=== PATIENT | male | born 1970 | race African-American/Black ===

== ENCOUNTER 2018-10-04 14:58 | Inpatient (IN) | payer OTHER ==
[2018-10-04 17:04] VITALS: BMI 26.2
--- NOTE | 2018-10-04 18:45 | HP ---
CIWA Score Nausea/Vomitin-No Nausea/No Vomiting Muscle Tremors: None Anxiety: 0-No Anxiety, at Ease Agitation: 0-Normal Activity Paroxysmal Sweats: No Perspiration Orientation: 3-Disoriented Date>2 days Tacttile Disturbances: 0-None Auditory Disturbances: 0-None Visual Disturbances: 0-None Headache: 0-None Present CIWA-Ar Total Score: 3 - Admission Criteria OASAS Guidelines: Admission for Medically Managed Detox: Requires at least one of the followin. CIWA greater than 12 2. Seizures within the past 24 hours 3. Delirium tremens within the past 24 hours 4. Hallucinations within the past 24 hours 5. Acute intervention needed for co occurring medical disorder 6. Acute intervention needed for co occurring psychiatric disorder 7. Severe withdrawal that cannot be handled at a lower level of care (continued vomiting, continued diarrhea, abnormal vital signs) requiring intravenous medication and/or fluids 8. Admission ROS [facility] - [facility] Allergies/Adverse Reactions: Allergies Allergy/AdvReac Type Severity Reaction Status Date / Time No Known Allergies Allergy Verified 10/04/18 17:43 - Ebola screening Have you traveled outside of the country in the last 21 days: No Have you had contact with anyone from an Ebola affected area: No Have you been sick,other than usual withdrawal symptoms: No Patient History - Patient Medical History Hx Anemia: No Hx Asthma: No Hx Chronic Obstructive Pulmonary Disease (COPD): No Hx Cancer: No Hx Cardiac Disorders: No Hx Hypertension: No Hx Hypercholesterolemia: No Hx Pacemaker: No HX Cerebrovascular Accident: No Hx Seizures: No Hx Dementia: No Hx Diabetes: No Hx Gastrointestinal Disorders: No Hx Genitourinary Disorders: No Hx Sexually Transmitted Disorders: No Hx Renal Disease (ESRD): No Hx Thyroid Disease: No Hx Human Immunodeficiency Virus (HIV): No (last 04/12 last negative) Hx Hepatitis C: No Hx Depression: Yes Hx Suicide Attempt: No Hx Bipolar Disorder: Yes (no med) Hx Schizophrenia: No - Patient Surgical History Past Surgical History: No Hx Neurologic Surgery: No Hx Cataract Extraction: No Hx Cardiac Surgery: No Hx Lung Surgery: No Hx Breast Surgery: No Hx Breast Biopsy: No Hx Abdominal Surgery: No Hx Appendectomy: No Hx Cholecystectomy: No Hx Genitourinary Surgery: No Hx Section: No Hx Orthopedic Surgery: No Anesthesia Reaction: No - PPD History Previous Implant?: Yes Documented Results: Negative w/o proof Implanted On Prior [facility] Admission?: No Date: 06/09/16 - Smoking Cessation Smoking history: Current every day smoker Have you smoked in the past 12 months: Yes Aproximately how many cigarettes per day: 20 Hx Chewing Tobacco Use: No Initiated information on smoking cessation: Yes - Substances Abused Alcohol Route: Oral Frequency: Daily Amount used: 1 pint vodka Age of first use: 14 Date of Last Use: 10/04/18 Crack Route: Smoking Frequency: Daily Amount used: $50 Age of first use: 17 Date of Last Use: 10/04/18 PCP Route: Smoking Frequency: Daily Amount used: 1 bag Age of first use: 17 Date of Last Use: 09/27/18 Admission Physical Exam [facility] - Vital Signs Vital Signs: Vital Signs - 24 hr 10/04/18 17:03 Temperature 97.7 F Pulse Rate 60 Respiratory 18 Rate Blood Pressure 125/68 BHS Breath Alcohol Content Breath Alcohol Content: 0 Urine Drug Screen - Results Drug Screen Negative: No Urine Drug Screen Results: MIKIE-Cocaine
--- NOTE | 2018-10-04 20:46 | HP ---
"CIWA Score Nausea/Vomitin-Mild Nausea/No Vomiting Muscle Tremors: 4-Moderate,w/Arms Extend Anxiety: 3 Agitation: 3 Paroxysmal Sweats: 3 (Mild facial misture w/o beads) Orientation: 1-Uncertain about Date Tacttile Disturbances: 1-Very Mild Itch/Numbness Auditory Disturbances: 0-None Visual Disturbances: 0-None Headache: 0-None Present CIWA-Ar Total Score: 16 - Admission Criteria OASAS Guidelines: Admission for Medically Managed Detox: Requires at least one of the followin. CIWA greater than 12 2. Seizures within the past 24 hours 3. Delirium tremens within the past 24 hours 4. Hallucinations within the past 24 hours 5. Acute intervention needed for co occurring medical disorder 6. Acute intervention needed for co occurring psychiatric disorder 7. Severe withdrawal that cannot be handled at a lower level of care (continued vomiting, continued diarrhea, abnormal vital signs) requiring intravenous medication and/or fluids 8. Patient presents the following: CIWA greater than 12 Admission Criteria Met: Admission criteria met Admission ROS [facility] - [facility] Chief Complaint: Here for alcohol withdrawal. Allergies/Adverse Reactions: Allergies Allergy/AdvReac Type Severity Reaction Status Date / Time No Known Allergies Allergy Verified 10/04/18 17:43 History of Present Illness: Here for detox. Alcohol use began at age 14. Cocaine use began at age 17. PCP use began at age 17. Nicotine use began at age 14. Declines nicotine patch. Denies general pain. C/o burning w/ urination. Hx: Migraine headaches. No headache at this time. Denies significant PMH/PSH. Hx mental health issues.Denies thoughts of harming self or others. No recent visits to a mental health provider. Search Terms: Jefferson Guzman, 12/12/1976 Search Date: 10/04/2018 08:25:02 PM The Drug Utilization Report below displays all of the controlled substance prescriptions, if any, that your patient has filled in the last twelve months. The information displayed on this report is compiled from pharmacy submissions to the Department, and accurately reflects the information as submitted by the pharmacies. This report was requested by: Melyssa Breaux | Reference #: [id number] There are no results for the search terms that you entered. Exam Limitations: No Limitations - Ebola screening Have you traveled outside of the country in the last 21 days: No Have you had contact with anyone from an Ebola affected area: No Have you been sick,other than usual withdrawal symptoms: No Do you have a fever: No - Review of Systems Constitutional: Chills, Diaphoresis, Changes in sleep (Difficulty staying asleep.) EENT: reports: Blurred Vision, Other (Microscopic hole in (L) pupil since r/t injury) Respiratory: reports: No Symptoms reported Cardiac: reports: Other (Occ slow heart. Denies fainting) GI: reports: Vomiting : reports: Other (Occ burning w/ urination. Hegterosexual. Sexually active.) Musculoskeletal: reports: No Symptoms Reported Integumentary: reports: No Symptoms Reported Neuro: reports: Numbness (C/o numbness in fingers when doesn't drink), Tremors Endocrine: reports: No Symptoms Reported Hematology: reports: No Symptoms Reported Psychiatric: reports: Judgement Intact, Agitated, Anxious, Depressed (Denies thoughts of harming self or others. No recent visits to a mental health provider.) Patient History - Patient Medical History Hx Anemia: No Hx Asthma: No Hx Chronic Obstructive Pulmonary Disease (COPD): No Hx Cancer: No Hx Cardiac Disorders: No Hx Hypertension: No Hx Hypercholesterolemia: No Hx Pacemaker: No HX Cerebrovascular Accident: No Hx Seizures: No Hx Dementia: No Hx Diabetes: No Hx Gastrointestinal Disorders: No Hx Genitourinary Disorders: No Hx Sexually Transmitted Disorders: No Hx Renal Disease (ESRD): No Hx Thyroid Disease: No Hx Human Immunodeficiency Virus (HIV): No (last 04/12 last negative) Hx Hepatitis C: No Hx Depression: Yes Hx Suicide Attempt: No Hx Bipolar Disorder: Yes (no med) Hx Schizophrenia: No - Patient Surgical History Past Surgical History: No Hx Neurologic Surgery: No Hx Cataract Extraction: No Hx Cardiac Surgery: No Hx Lung Surgery: No Hx Breast Surgery: No Hx Breast Biopsy: No Hx Abdominal Surgery: No Hx Appendectomy: No Hx Cholecystectomy: No Hx Genitourinary Surgery: No Hx Section: No Hx Orthopedic Surgery: No Anesthesia Reaction: No - PPD History Previous Implant?: Yes Documented Results: Negative w/o proof Implanted On Prior [facility] Admission?: No Date: 06/09/16 PPD to be Administered?: Yes - Smoking Cessation Smoking history: Current every day smoker Have you smoked in the past 12 months: Yes Aproximately how many cigarettes per day: 20 Hx Chewing Tobacco Use: No Initiated information on smoking cessation: Yes 'Breaking Loose' booklet given: 10/04/18 - Substances Abused Alcohol Route: Oral Frequency: Daily Amount used: 1 pint vodka Age of first use: 14 Date of Last Use: 10/04/18 Crack Route: Smoking Frequency: Daily Amount used: $50 Age of first use: 17 Date of Last Use: 10/04/18 PCP Route: Smoking Frequency: Daily Amount used: 1 bag Age of first use: 17 Date of Last Use: 09/27/18 Admission Physical Exam [facility] - Vital Signs Vital Signs: Vital Signs - 24 hr 10/04/18 17:03 Temperature 97.7 F Pulse Rate 60 Respiratory 18 Rate Blood Pressure 125/68 - Physical General Appearance: Yes: Nourished, Mild Distress, Tremorous, Sweating, Anxious HEENTM: Yes: EOMI, Nasal Congestion, Other ((L) pupil irregular) Respiratory: Yes: Lungs Clear, Normal Breath Sounds, No Respiratory Distress Neck: Yes: No masses,lesions,Nodules, Supple Breast: Yes: Breast Exam Deferred Cardiology: Yes: Regular Rhythm, Regular Rate, S1, S2 Abdominal: Yes: Non Tender, Soft, Increased Bowel Sounds Genitourinary: Yes: Burning Back: Yes: Normal Inspection Musculoskeletal: Yes: full range of Motion, Gait Steady Extremities: Yes: Normal Capillary Refill, Non-Tender, Tremors (w/ arms extended ) 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: Yes: Fully Oriented, Alert, Motor Strength 5/5, Normal Mood/Affect , Normal Response Integumentary: Yes: Normal Color, Dry, Warm Lymphatic: Yes: Within Normal Limits - Diagnostic (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 (2) Alcohol dependence with uncomplicated withdrawal Current Visit: Yes Status: Acute (3) Cocaine dependence Current Visit: Yes Status: Chronic Qualifiers: Substance use status: uncomplicated Qualified Code(s): F14.20 - Cocaine dependence, uncomplicated (4) Nicotine dependence Current Visit: Yes Status: Chronic Qualifiers: Nicotine product type: cigarettes Substance use status: uncomplicated Qualified Code(s): F17.210 - Nicotine dependence, cigarettes, uncomplicated (5) Burning with urination Current Visit: Yes Status: Acute Cleared for Admission [facility] - Detox or Rehab [facility] Level of Care: Medically Managed Detox Regimen/Protocol: Librium BHS Breath Alcohol Content Breath Alcohol Content: 0 Urine Drug Screen - Results Drug Screen Negative: No Urine Drug Screen Results: MIKIE-Cocaine"
[2018-10-04] MEDS ORDERED: chlordiazePOXIDE HCL 25 MG CAPSULE PO ONE (21:07)
[2018-10-04] MEDS ORDERED: MAGNESIUM CITRATE 300 ML BOTTLE PO PRN (21:07)
[2018-10-04] MEDS ORDERED: MAGNESIUM HYDROX 2400MG/30ML ORAL SUSPENSION 30 ML CUP PO PRN (21:07)
[2018-10-04] MEDS ORDERED: MENTHOL/PHENOL 1 EACH UD MM PRN (21:07)
[2018-10-04] MEDS ORDERED: chlordiazePOXIDE HCL 25 MG CAPSULE PO PRN (21:07)
[2018-10-04] MEDS ORDERED: ACETAMINOPHEN 325 MG TABLET (FP) PO PRN (21:07)
[2018-10-04] MEDS ORDERED: LOPERAMIDE HCL 2 MG CAPSULE PO PRN (21:07)
[2018-10-04] MEDS ORDERED: NICOTINE POLACRILEX 2 MG GUM BC PRN (21:07)
[2018-10-04] MEDS ORDERED: P-EPHED 60MG/TRIPROLIDI 2.5MG TABLET PO PRN (21:07)
[2018-10-04] MEDS ORDERED: MAG HYDROX/AL HYDROX/SIMETH 30 ML UNIT-DOSE CUP PO PRN (21:07)
[2018-10-04] MEDS ORDERED: IBUPROFEN 400 MG TABLET (FP) PO PRN (21:07)
[2018-10-04] MEDS ORDERED: NAPROXEN 500 MG TABLET (FP) PO PRN (21:09)
[2018-10-04] MEDS ORDERED: MELATONIN 5 MG TABLETS PO PRN (22:00)
[2018-10-04] MEDS: chlordiazePOXIDE HCL 25 MG CAPSULE PO SCH (22:27)
[2018-10-04] MEDS: THIAMINE HCL 100 MG TABLET (FP) PO SCH (22:28)
[2018-10-05] MEDS: chlordiazePOXIDE HCL 25 MG CAPSULE PO SCH ×4 (06:31→22:34)
--- NOTE | 2018-10-05 10:06 | EKG ---
Test Reason : Blood Pressure : / mmHG Vent. Rate : 059 BPM Atrial Rate : 059 BPM P-R Int : 148 ms QRS Dur : 092 ms QT Int : 396 ms P-R-T Axes : 060 083 070 degrees QTc Int : 392 ms SINUS BRADYCARDIA OTHERWISE NORMAL ECG NO PREVIOUS ECGS AVAILABLE Confirmed by Gibran Villafana MD ([id number]) on 10/05/2018 10:06:12 AM Referred By: Confirmed By:Gibran Villafana MD
[2018-10-05] MEDS: PRENATAL VITAMINS W/ FOLIC ACID TABLET (FP) PO SCH (10:19)
[2018-10-05] MEDS: NICOTINE 14 MG/24 HOURS TOPICAL PATCH TD SCH (10:19)
[2018-10-05 10:34] LABS: HEMATOCRIT 38.4 % (35.4-49); HEMOGLOBIN 12.6 GM/dL (11.7-16.9); MCH 29.5 pg (25.7-33.7); MCHC 32.8 g/dl (32.0-35.9); MEAN PLT VOLUME 9.8 fl (7.5-11.1); PLATELET COUNT 107 K/MM3 (134-434); RBC 4.27 M/mm3 (4.00-5.60); RDW 13.5 % (11.9-15.9); WHITE BLOOD COUNT 2.6 K/mm3 (4.0-10.0)
[2018-10-05 10:45] LABS: ALBUMIN 3.2 g/dl (3.4-5.0); ALK PHOS 65 U/L (45-117); ANION GAP 7 MMOL/L (8-16); BILIRUBIN,TOTAL 0.5 mg/dL (0.2-1); BLOOD UREA NITROGEN 11 mg/dL (7-18); CALCIUM 8.6 mg/dL (8.5-10.1); CHLORIDE 110 mmol/L (98-107); CO2 28 mmol/L (21-32); CREATININE 1.1 mg/dL (0.55-1.3); GLUCOSE,RANDOM 104 mg/dL (74-106); POTASSIUM 3.9 mmol/L (3.5-5.1); SGOT/AST 13 U/L (15-37); SGPT/ALT 16 U/L (13-61); SODIUM 144 mmol/L (136-145); TOT PROT 5.8 g/dl (6.4-8.2)
--- NOTE | 2018-10-05 12:13 | PN ---
S CIWA - CIWA Score Nausea/Vomitin-Mild Nausea/No Vomiting Muscle Tremors: 3 Anxiety: 2 Agitation: 2 Paroxysmal Sweats: 1-Minimal Palms Moist Orientation: 1-Uncertain about Date Tacttile Disturbances: 0-None Auditory Disturbances: 0-None Visual Disturbances: 0-None Headache: 2-Mild CIWA-Ar Total Score: 12 S Progress Note (SOAP) Subjective: patient had history of psychiatric hospitalization taking fluphenazine for schizophrenia tremor sweat restlessness trouble sleep throughout the night Objective: 10/05/18 12:32 Vital Signs Temperature 97.3 F L 10/05/18 09:20 Pulse Rate 50 L 10/05/18 09:20 Respiratory Rate 20 10/05/18 09:20 Blood Pressure 107/59 L 10/05/18 09:20 O2 Sat by Pulse Oximetry (%) Laboratory Last Values WBC 2.6 K/mm3 (4.0-10.0) L 10/05/18 07:00 RBC 4.27 M/mm3 (4.00-5.60) 10/05/18 07:00 Hgb 12.6 GM/dL (11.7-16.9) 10/05/18 07:00 Hct 38.4 % (35.4-49) 10/05/18 07:00 MCV 90.0 fl (80-96) 10/05/18 07:00 MCH 29.5 pg (25.7-33.7) 10/05/18 07:00 MCHC 32.8 g/dl (32.0-35.9) 10/05/18 07:00 RDW 13.5 % (11.9-15.9) 10/05/18 07:00 Plt Count 107 K/MM3 (134-434) L 10/05/18 07:00 MPV 9.8 fl (7.5-11.1) 10/05/18 07:00 Sodium 144 mmol/L (136-145) 10/05/18 07:00 Potassium 3.9 mmol/L (3.5-5.1) 10/05/18 07:00 Chloride 110 mmol/L (98-107) H 10/05/18 07:00 Carbon Dioxide 28 mmol/L (21-32) 10/05/18 07:00 Anion Gap 7 MMOL/L (8-16) L 10/05/18 07:00 BUN 11 mg/dL (7-18) 10/05/18 07:00 Creatinine 1.1 mg/dL (0.55-1.3) 10/05/18 07:00 Creat Clearance w eGFR > 60 (>60) 10/05/18 07:00 Random Glucose 104 mg/dL (74-106) 10/05/18 07:00 Calcium 8.6 mg/dL (8.5-10.1) 10/05/18 07:00 Total Bilirubin 0.5 mg/dL (0.2-1) 10/05/18 07:00 AST 13 U/L (15-37) L 10/05/18 07:00 ALT 16 U/L (13-61) 10/05/18 07:00 Alkaline Phosphatase 65 U/L (45-117) 10/05/18 07:00 Total Protein 5.8 g/dl (6.4-8.2) L 10/05/18 07:00 Albumin 3.2 g/dl (3.4-5.0) L 10/05/18 07:00 RPR Titer Nonreactive (NONREACTIVE) 10/05/18 07:00 lab noted repeat cbc Assessment: 10/05/18 12:33 withdrawal sx schizophrenia Plan: continue detox
[2018-10-05] MEDS: RANITIDINE HCL 150 MG TABLET (FP) PO SCH ×2 (14:16→22:34)
[2018-10-05 15:25] LABS: URINE APPEARANCE CLEAR; URINE BILIRUBIN NEGATIVE (<2.0 mg/dL); URINE COLOR LTYELLOW; URINE GLUCOSE (UA) NEGATIVE (NEGATIVE); URINE KETONE NEGATIVE (NEGATIVE); URINE LEUK ESTERASE NEGATIVE (NEGATIVE); URINE NITRITE NEGATIVE (NEGATIVE); URINE PROTEIN NEGATIVE (NEGATIVE)
[2018-10-05] MEDS: THIAMINE HCL 100 MG TABLET (FP) PO SCH (22:34)
[2018-10-06] MEDS: chlordiazePOXIDE HCL 25 MG CAPSULE PO SCH ×3 (06:39→17:10)
[2018-10-06] MEDS: RANITIDINE HCL 150 MG TABLET (FP) PO SCH ×2 (10:29→22:06)
[2018-10-06] MEDS: PRENATAL VITAMINS W/ FOLIC ACID TABLET (FP) PO SCH (10:29)
[2018-10-06] MEDS: NICOTINE 14 MG/24 HOURS TOPICAL PATCH TD SCH (10:31)
--- NOTE | 2018-10-06 14:40 | PN ---
[facility] CIWA - CIWA Score Nausea/Vomitin-No Nausea/No Vomiting Muscle Tremors: 2 Anxiety: 1-Mildly Anxious Agitation: 1-Slight > Activity Paroxysmal Sweats: 1-Minimal Palms Moist Orientation: 1-Uncertain about Date Tacttile Disturbances: 1-Very Mild Itch/Numbness Auditory Disturbances: 1-Very Mild Visual Disturbances: 0-None Headache: 2-Mild CIWA-Ar Total Score: 10 S Progress Note (SOAP) Subjective: mild tremor little sweat tolerate food and fluid better Objective: 10/06/18 14:41 Vital Signs Temperature 98.2 F 10/06/18 13:14 Pulse Rate 57 L 10/06/18 13:14 Respiratory Rate 20 10/06/18 13:14 Blood Pressure 116/67 10/06/18 13:14 O2 Sat by Pulse Oximetry (%) Laboratory Last Values WBC 2.6 K/mm3 (4.0-10.0) L 10/05/18 07:00 RBC 4.27 M/mm3 (4.00-5.60) 10/05/18 07:00 Hgb 12.6 GM/dL (11.7-16.9) 10/05/18 07:00 Hct 38.4 % (35.4-49) 10/05/18 07:00 MCV 90.0 fl (80-96) 10/05/18 07:00 MCH 29.5 pg (25.7-33.7) 10/05/18 07:00 MCHC 32.8 g/dl (32.0-35.9) 10/05/18 07:00 RDW 13.5 % (11.9-15.9) 10/05/18 07:00 Plt Count 107 K/MM3 (134-434) L 10/05/18 07:00 MPV 9.8 fl (7.5-11.1) 10/05/18 07:00 Sodium 144 mmol/L (136-145) 10/05/18 07:00 Potassium 3.9 mmol/L (3.5-5.1) 10/05/18 07:00 Chloride 110 mmol/L (98-107) H 10/05/18 07:00 Carbon Dioxide 28 mmol/L (21-32) 10/05/18 07:00 Anion Gap 7 MMOL/L (8-16) L 10/05/18 07:00 BUN 11 mg/dL (7-18) 10/05/18 07:00 Creatinine 1.1 mg/dL (0.55-1.3) 10/05/18 07:00 Creat Clearance w eGFR > 60 (>60) 10/05/18 07:00 Random Glucose 104 mg/dL (74-106) 10/05/18 07:00 Calcium 8.6 mg/dL (8.5-10.1) 10/05/18 07:00 Total Bilirubin 0.5 mg/dL (0.2-1) 10/05/18 07:00 AST 13 U/L (15-37) L 10/05/18 07:00 ALT 16 U/L (13-61) 10/05/18 07:00 Alkaline Phosphatase 65 U/L (45-117) 10/05/18 07:00 Total Protein 5.8 g/dl (6.4-8.2) L 10/05/18 07:00 Albumin 3.2 g/dl (3.4-5.0) L 10/05/18 07:00 Urine Color Ltyellow 10/04/18 11:45 Urine Appearance Clear 10/04/18 11:45 Urine pH 6.0 (5.0-8.0) 10/04/18 11:45 Ur Specific [place] 1.014 (1.010-1.035) 10/04/18 11:45 Urine Protein Negative (NEGATIVE) 10/04/18 11:45 Urine Glucose (UA) Negative (NEGATIVE) 10/04/18 11:45 Urine Ketones Negative (NEGATIVE) 10/04/18 11:45 Urine Blood Negative (NEGATIVE) 10/04/18 11:45 Urine Nitrite Negative (NEGATIVE) 10/04/18 11:45 Urine Bilirubin Negative (<2.0 mg/dL) 10/04/18 11:45 Urine Urobilinogen 2.0 mg/dL (0.2-1.0) 10/04/18 11:45 Ur Leukocyte Esterase Negative (NEGATIVE) 10/04/18 11:45 RPR Titer Nonreactive (NONREACTIVE) 10/05/18 07:00 lab noted 10/06/18 14:42 repeat cbc pending Assessment: 10/06/18 14:42 withdrawal sx Plan: continue detox
[2018-10-06 14:47] LABS: HEMATOCRIT 38.2 % (35.4-49); HEMOGLOBIN 12.5 GM/dL (11.7-16.9); MCH 29.2 pg (25.7-33.7); MCHC 32.8 g/dl (32.0-35.9); MEAN CELL VOLUME 89.1 fl (80-96); MEAN PLT VOLUME 10.2 fl (7.5-11.1); PLATELET COUNT 115 K/MM3 (134-434); RBC 4.28 M/mm3 (4.00-5.60); RDW 13.4 % (11.9-15.9); WHITE BLOOD COUNT 3.1 K/mm3 (4.0-10.0)
[2018-10-06] MEDS: THIAMINE HCL 100 MG TABLET (FP) PO SCH (22:05)
[2018-10-06] MEDS: chlordiazePOXIDE 5 MG CAPSULE PO SCH (22:05)
[2018-10-07] MEDS: chlordiazePOXIDE 5 MG CAPSULE PO SCH ×3 (06:14→16:36)
[2018-10-07] MEDS: PRENATAL VITAMINS W/ FOLIC ACID TABLET (FP) PO SCH (10:24)
[2018-10-07] MEDS: RANITIDINE HCL 150 MG TABLET (FP) PO SCH ×2 (10:24→21:38)
[2018-10-07] MEDS: NICOTINE 14 MG/24 HOURS TOPICAL PATCH TD SCH (10:26)
--- NOTE | 2018-10-07 11:26 | PN ---
BHS Progress Note (SOAP) Subjective: feeling better less tremor little sweat mild gi distress Objective: 10/07/18 11:26 Vital Signs Temperature 97.2 F L 10/07/18 09:53 Pulse Rate 61 10/07/18 09:53 Respiratory Rate 18 10/07/18 09:53 Blood Pressure 122/65 10/07/18 09:53 O2 Sat by Pulse Oximetry (%) Laboratory Last Values WBC 3.1 K/mm3 (4.0-10.0) L 10/06/18 10:15 RBC 4.28 M/mm3 (4.00-5.60) 10/06/18 10:15 Hgb 12.5 GM/dL (11.7-16.9) 10/06/18 10:15 Hct 38.2 % (35.4-49) 10/06/18 10:15 MCV 89.1 fl (80-96) 10/06/18 10:15 MCH 29.2 pg (25.7-33.7) 10/06/18 10:15 MCHC 32.8 g/dl (32.0-35.9) 10/06/18 10:15 RDW 13.4 % (11.9-15.9) 10/06/18 10:15 Plt Count 115 K/MM3 (134-434) L 10/06/18 10:15 MPV 10.2 fl (7.5-11.1) 10/06/18 10:15 Sodium 144 mmol/L (136-145) 10/05/18 07:00 Potassium 3.9 mmol/L (3.5-5.1) 10/05/18 07:00 Chloride 110 mmol/L (98-107) H 10/05/18 07:00 Carbon Dioxide 28 mmol/L (21-32) 10/05/18 07:00 Anion Gap 7 MMOL/L (8-16) L 10/05/18 07:00 BUN 11 mg/dL (7-18) 10/05/18 07:00 Creatinine 1.1 mg/dL (0.55-1.3) 10/05/18 07:00 Creat Clearance w eGFR > 60 (>60) 10/05/18 07:00 Random Glucose 104 mg/dL (74-106) 10/05/18 07:00 Calcium 8.6 mg/dL (8.5-10.1) 10/05/18 07:00 Total Bilirubin 0.5 mg/dL (0.2-1) 10/05/18 07:00 AST 13 U/L (15-37) L 10/05/18 07:00 ALT 16 U/L (13-61) 10/05/18 07:00 Alkaline Phosphatase 65 U/L (45-117) 10/05/18 07:00 Total Protein 5.8 g/dl (6.4-8.2) L 10/05/18 07:00 Albumin 3.2 g/dl (3.4-5.0) L 10/05/18 07:00 Urine Color Ltyellow 10/04/18 11:45 Urine Appearance Clear 10/04/18 11:45 Urine pH 6.0 (5.0-8.0) 10/04/18 11:45 Ur Specific [place] 1.014 (1.010-1.035) 10/04/18 11:45 Urine Protein Negative (NEGATIVE) 10/04/18 11:45 Urine Glucose (UA) Negative (NEGATIVE) 10/04/18 11:45 Urine Ketones Negative (NEGATIVE) 10/04/18 11:45 Urine Blood Negative (NEGATIVE) 10/04/18 11:45 Urine Nitrite Negative (NEGATIVE) 10/04/18 11:45 Urine Bilirubin Negative (<2.0 mg/dL) 10/04/18 11:45 Urine Urobilinogen 2.0 mg/dL (0.2-1.0) 10/04/18 11:45 Ur Leukocyte Esterase Negative (NEGATIVE) 10/04/18 11:45 RPR Titer Nonreactive (NONREACTIVE) 10/05/18 07:00 lab noted Assessment: 10/07/18 11:26 mild withdrawal sx Plan: continue detox
--- NOTE | 2018-10-07 16:47 | CONSULT ---
[facility] Psychiatric Consult - Data Date of interview: 10/07/17 Admission source: [facility] Identifying data: Patient is a 48 year old single male, mother of three, unemployed, and currently homeless. This is one of multiple admissions for patient. Patient admitted to for alcohol and cocaine dependence. Substance Abuse History: Smoking Cessation. Smoking history: Current every day smoker. Have you smoked in the past 12 months: Yes. Aproximately how many cigarettes per day: 20. Hx Chewing Tobacco Use: No. Initiated information on smoking cessation: Yes. 'Breaking Loose' booklet given: 10/04/18. - Substances Abused. Alcohol. Route: Oral. Frequency: Daily. Amount used: 1 pint vodka. Age of first use: 14. Date of Last Use: 10/04/18. Crack. Route: Smoking. Frequency: Daily. Amount used: $50. Age of first use: 17. Date of Last Use: 10/04/18. PCP. Route: Smoking. Frequency: Daily. Amount used: 1 bag. Age of first use: 17. Date of Last Use: 09/27/18 Medical History: denies. endorses good health. Psychiatric History: Patient is unreliable. He denies h/o psychiatric hospitalization, outpatient psychiatric care, and suicide attempt. Patient asked by underwriter mortgage loan if he's ever taken prolixen? Patient responded with a laugh and replied, "yea that was a long time ago. I don't need psychiatric help." Patient denies psychotic symptoms. As per pharmacy claims, a prescription of prolixen decanoate was sent to patient's pharmacy on 01/21/18. At present, patient reports feeling fine. Physical/Sexual Abuse/Trauma History: denies. Mental Status Exam - Mental Status Exam Alert and Oriented to: Time, Place, Person Cognitive Function: Good Patient Appearance: Well Groomed Mood: Euthymic Affect: Mood Congruent Patient Behavior: Guarded, Cooperative Speech Pattern: Clear Voice Loudness: Normal Thought Process: Intact, Goal Oriented Hallucinations: Denies Suicidal Ideation: Denies Homicidal Ideation: Denies Insight/Judgement: Poor Sleep: Fair Appetite: Fair Muscle strength/Tone: Normal Gait/Station: Normal Psychiatric Findings - Problem List ([place] 1, 2,3) (1) Substance induced mood disorder Current Visit: No Status: Suspected (2) Alcohol dependence with uncomplicated withdrawal Current Visit: Yes Status: Acute (3) Cocaine dependence Current Visit: Yes Status: Chronic Qualifiers: Substance use status: uncomplicated Qualified Code(s): F14.20 - Cocaine dependence, uncomplicated (4) Nicotine dependence Current Visit: Yes Status: Chronic Qualifiers: Nicotine product type: cigarettes Substance use status: uncomplicated Qualified Code(s): F17.210 - Nicotine dependence, cigarettes, uncomplicated - Initial Treatment Plan Initial Treatment Plan: Psychoeducation provided. Detoxification in progress. Observation.
[2018-10-07] MEDS: THIAMINE HCL 100 MG TABLET (FP) PO SCH (21:38)
[2018-10-07] MEDS: chlordiazePOXIDE HCL 10 MG CAPSULE PO SCH (22:14)
[2018-10-08] MEDS: chlordiazePOXIDE HCL 10 MG CAPSULE PO SCH ×2 (05:37→10:07)
[2018-10-08 09:12] VITALS: BP 144/89; PULSE 68; TEMP 96.6
[2018-10-08] MEDS: RANITIDINE HCL 150 MG TABLET (FP) PO SCH (10:07)
[2018-10-08] MEDS: PRENATAL VITAMINS W/ FOLIC ACID TABLET (FP) PO SCH (10:07)
[2018-10-08] MEDS: NICOTINE 14 MG/24 HOURS TOPICAL PATCH TD SCH (10:07)
--- NOTE | 2018-10-08 17:47 | DS ---
[facility] Detox Discharge Summary Admission Date: 10/04/18 Discharge Date: 10/08/18 - History Present History: Alcohol Dependence, Cocaine Dependence Additional Comments: PATIENT GOING TO [facility] ([place], [place]) FOR AFTERCARE. RESULTS OF PATIENT'S URINE C + S PREVIOUSLY DUE TO PATIENT'S REPORT OF BURNING PAIN WHEN URINATING AT TIME OF ADMISSION NOTED: 'NO GROWTH OBTAINED.' PATIENT ADVISED TO FOLLOW-UP WITH PC P FOR FURTHER EVALUATION OF URINARY DISCOMFORT WHEN POSSIBLE. PATIENT VERBALIZED UNDERSTANDING OF RECOMMENDATION. PATIENT WAS DISCHARGED FROM DETOX UNIT IN STABLE MEDICAL CONDITION. Pertinent Past History: Nicotine Dependence, History of Burning With Urination, History of Pupillary Abnormality of Left Eye, History of Depression, History of Bipolar Disorder. - Physical Exam Results Vital Signs: Vital Signs Temperature 96.6 F L 10/08/18 09:11 Pulse Rate 68 10/08/18 09:11 Respiratory Rate 17 10/08/18 09:11 Blood Pressure 144/89 10/08/18 09:11 O2 Sat by Pulse Oximetry (%) Pertinent Admission Physical Exam Findings: WITHDRAWAL SYMPTOMS. Laboratory Tests 10/04/18 10/05/18 10/05/18 11:45 07:00 07:00 WBC 2.6 L RBC 4.27 Hgb 12.6 Hct 38.4 MCV 90.0 MCH 29.5 MCHC 32.8 RDW 13.5 Plt Count 107 L MPV 9.8 Sodium 144 Potassium 3.9 Chloride 110 H Carbon Dioxide 28 Anion Gap 7 L BUN 11 Creatinine 1.1 Creat Clearance w eGFR > 60 Random Glucose 104 Calcium 8.6 Total Bilirubin 0.5 AST 13 L ALT 16 Alkaline Phosphatase 65 Total Protein 5.8 L Albumin 3.2 L Urine Color Ltyellow Urine Appearance Clear Urine pH 6.0 Ur Specific [place] 1.014 Urine Protein Negative Urine Glucose (UA) Negative Urine Ketones Negative Urine Blood Negative Urine Nitrite Negative Urine Bilirubin Negative Urine Urobilinogen 2.0 Ur Leukocyte Esterase Negative RPR Titer 10/05/18 10/06/18 07:00 10:15 WBC 3.1 L RBC 4.28 Hgb 12.5 Hct 38.2 MCV 89.1 MCH 29.2 MCHC 32.8 RDW 13.4 Plt Count 115 L MPV 10.2 Sodium Potassium Chloride Carbon Dioxide Anion Gap BUN Creatinine Creat Clearance w eGFR Random Glucose Calcium Total Bilirubin AST ALT Alkaline Phosphatase Total Protein Albumin Urine Color Urine Appearance Urine pH Ur Specific [place] Urine Protein Urine Glucose (UA) Urine Ketones Urine Blood Urine Nitrite Urine Bilirubin Urine Urobilinogen Ur Leukocyte Esterase RPR Titer Nonreactive LABS NOTED. - Treatment Hospital Course: Detox Protocol Followed, Detoxed Safely, Responded well, Discharged Condition Good, Rehab Referral Accepted Patient has Accepted a Rehab Referral to: [facility] ([place], [place]). - Medication Discharge Medications: Ambulatory Orders NK [No Known Home Medication] 06/07/16 - Diagnosis (1) Alcohol dependence with uncomplicated withdrawal Status: Acute (2) Burning with urination Status: Acute (3) Nicotine dependence Status: Chronic Qualifiers: Nicotine product type: cigarettes Substance use status: uncomplicated Qualified Code(s): F17.210 - Nicotine dependence, cigarettes, uncomplicated (4) Substance induced mood disorder Status: Suspected (5) Cocaine dependence Status: Chronic Qualifiers: Substance use status: uncomplicated Qualified Code(s): F14.20 - Cocaine dependence, uncomplicated (6) 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
== END 2018-10-08 11:48 | disposition home or self-care (01) | DRG 774 ==
LOC: YASAS 14:58 → Y3N 19:12
PROC: HZ2ZZZZ Detoxification Services for Substance Abuse Treatment (ICD-10-PCS; principal; 2018-10-04)
DX: F10.230 Alcohol dependence with withdrawal, uncomplicated (principal); F14.20 Cocaine dependence, uncomplicated; F17.210 Nicotine dependence, cigarettes, uncomplicated; F19.24 Other psychoactive substance dependence with psychoactive substance-induced mood disorder; F20.9 Schizophrenia, unspecified; R30.0 Dysuria; H21.569 Pupillary abnormality, unspecified eye
CPT/HCPCS: 36415; 80053; 81003; 85027; 86593; 87086; 93005; 93010

== ENCOUNTER 2019-10-14 10:45 | Inpatient (IN) | payer OTHER ==
[2019-10-14 11:13] VITALS: BMI 23.8
--- NOTE | 2019-10-14 13:58 | HP ---
CIWA Score Nausea/Vomitin Muscle Tremors: 3 Anxiety: 4-Mod. Anxious/Guarded Agitation: 2 Paroxysmal Sweats: No Perspiration Orientation: 0-Oriented Tacttile Disturbances: 0-None Auditory Disturbances: 0-None Visual Disturbances: 0-None Headache: 3-Moderate CIWA-Ar Total Score: 14 - Admission Criteria OASAS Guidelines: Admission for Medically Managed Detox: Requires at least one of the followin. CIWA greater than 12 2. Seizures within the past 24 hours 3. Delirium tremens within the past 24 hours 4. Hallucinations within the past 24 hours 5. Acute intervention needed for co occurring medical disorder 6. Acute intervention needed for co occurring psychiatric disorder 7. Severe withdrawal that cannot be handled at a lower level of care (continued vomiting, continued diarrhea, abnormal vital signs) requiring intravenous medication and/or fluids 8. 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: Yes: Migraine - Smoking History Smoking history: Current every day smoker Have you smoked in the past 12 months: Yes Aproximately how many cigarettes per day: 20 - Alcohol/Substance Use Hx Alcohol Use: Yes - Social History Usual Living Arrangement: Yes: With Spouse Do you think of yourself as: Straight/Heterosexual ADL: Independent History of Recent Travel: No Admission ROS S - HPI Chief Complaint: ETOH WITHDRAWAL SX Allergies/Adverse Reactions: Allergies Allergy/AdvReac Type Severity Reaction Status Date / Time No Known Allergies Allergy Verified 10/14/19 11:07 Exam Limitations: No Limitations - Ebola screening Have you traveled outside of the country in the last 21 days: No Have you had contact with anyone from an Ebola affected area: No Have you been sick,other than usual withdrawal symptoms: No Do you have a fever: No - Review of Systems Constitutional: Unintentional Wgt. Loss EENT: reports: No Symptoms Reported Respiratory: reports: No Symptoms reported Cardiac: reports: No Symptoms Reported GI: reports: Nausea, Poor Appetite, Poor Fluid Intake : reports: No Symptoms Reported Musculoskeletal: reports: No Symptoms Reported Integumentary: reports: No Symptoms Reported Neuro: reports: Headache, Tremors Endocrine: reports: Unexplained Weight Loss Hematology: reports: No Symptoms Reported Psychiatric: reports: Orientated x3, Anxious, Depressed Patient History - Patient Medical History Hx Anemia: No Hx Asthma: No Hx Chronic Obstructive Pulmonary Disease (COPD): No Hx Cancer: No Hx Cardiac Disorders: No Hx Hypertension: No Hx Hypercholesterolemia: No Hx Pacemaker: No HX Cerebrovascular Accident: No Hx Seizures: No Hx Dementia: No Hx Diabetes: No Hx Gastrointestinal Disorders: No Hx Liver Disease: No Hx Genitourinary Disorders: No Hx Sexually Transmitted Disorders: No Hx Renal Disease (ESRD): No Hx Thyroid Disease: No Hx Human Immunodeficiency Virus (HIV): No (last 04/12 last negative) Hx Hepatitis C: No Hx Depression: Yes Hx Suicide Attempt: No Hx Bipolar Disorder: Yes (no med) Hx Schizophrenia: No - Patient Surgical History Past Surgical History: No Hx Neurologic Surgery: No Hx Cataract Extraction: No Hx Cardiac Surgery: No Hx Lung Surgery: No Hx Breast Surgery: No Hx Breast Biopsy: No Hx Abdominal Surgery: No Hx Appendectomy: No Hx Cholecystectomy: No Hx Genitourinary Surgery: No Hx Orthopedic Surgery: No Anesthesia Reaction: No - PPD History Date: 10/06/18 PPD to be Administered?: No - Smoking Cessation Smoking history: Current every day smoker Have you smoked in the past 12 months: Yes Aproximately how many cigarettes per day: 20 Hx Chewing Tobacco Use: No Initiated information on smoking cessation: Yes 'Breaking Loose' booklet given: 10/14/19 - Substance & Tx. History Hx Alcohol Use: Yes Hx Substance Use: No Substance Use Type: Alcohol Hx Substance Use Treatment: Yes - Substances abused Alcohol Substance route: Oral Frequency: Daily Amount used: VODKA/ LIQUOR- 2PTS/ Age of first use: 11 Date of last use: 10/14/19 Crack Substance route: Smoking Frequency: Daily Amount used: 10BAGS Age of first use: 17 Date of last use: 10/13/19 Admission Physical Exam BHS - Vital Signs Vital Signs: Vital Signs - 24 hr 10/14/19 11:06 Temperature 97 F L Pulse Rate 60 Respiratory 18 Rate Blood Pressure 131/77 - Physical General Appearance: Yes: No Apparent Distress, Alcohol on Breath, Tremorous, Anxious HEENTM: Yes: EOMI, Hearing grossly Normal, Normocephalic, Normal Voice, WALTER Respiratory: Yes: Chest Non-Tender, Lungs Clear, Normal Breath Sounds, No Respiratory Distress, No Accessory Muscle Use Neck: Yes: No masses,lesions,Nodules, Supple, Trachea in good position Breast: Yes: Breast Exam Deferred Cardiology: Yes: Regular Rhythm, Regular Rate, S1, S2 Abdominal: Yes: Normal Bowel Sounds, Non Tender, Flat, Soft Genitourinary: Yes: Within Normal Limits Back: Yes: Within Normal Limits Musculoskeletal: Yes: full range of Motion, Gait Steady Extremities: Yes: Normal Inspection, Normal Range of Motion, Non-Tender, Tremors 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: Yes: 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 intact, Fully Oriented, Alert, Motor Strength 5/5, Normal Response, Depressed Affect Integumentary: Yes: Normal Color, Dry, Warm Lymphatic: Yes: Within Normal Limits - Diagnostic (1) Alcohol dependence with uncomplicated withdrawal Current Visit: No Status: Acute (2) Bipolar disorder Current Visit: No Status: Chronic Qualifiers: Current episode severity: unspecified (3) Cocaine dependence Current Visit: No Status: Chronic Qualifiers: Substance use status: uncomplicated Qualified Code(s): F14.20 - Cocaine dependence, uncomplicated (4) Nicotine dependence Current Visit: No Status: Chronic Qualifiers: Nicotine product type: cigarettes Substance use status: uncomplicated Qualified Code(s): F17.210 - Nicotine dependence, cigarettes, uncomplicated Cleared for Admission S - Detox or Rehab [facility] Level of Care: Medically Managed Detox Regimen/Protocol: Librium Breathalyzer - Breathalyzer Breathalyzer: 0.005 Urine Drug Screen - Test Device Lot number: [id number] Expiration date: 04/27/21 - Control Is test valid?: Yes - Results Drug screen NEGATIVE: No Urine drug screen results: MIKIE-Cocaine Inpatient Rehab Admission - Rehab Decision to Admit Inpatient rehab admission?: No
[2019-10-14] MEDS ORDERED: ACETAMINOPHEN 325 MG TABLET (FP) PO PRN ×2 (14:01)
[2019-10-14] MEDS ORDERED: BISMUTH SUBSALICYLATE 262 MG/15 ML BTL PO PRN (14:01)
[2019-10-14] MEDS ORDERED: IBUPROFEN 400 MG TABLET (FP) PO PRN (14:01)
[2019-10-14] MEDS ORDERED: METHOCARBAMOL 500 MG TABLET PO PRN (14:01)
[2019-10-14] MEDS ORDERED: ONDANSETRON *ODT* 4 MG TABLET SL PRN (14:01)
[2019-10-14] MEDS ORDERED: MAGNESIUM CITRATE 300 ML BOTTLE PO PRN (14:01)
[2019-10-14] MEDS ORDERED: MAG HYDROX/AL HYDROX/SIMETH 30 ML UNIT-DOSE CUP PO PRN (14:01)
[2019-10-14] MEDS ORDERED: MAGNESIUM HYDROX 2400MG/30ML ORAL SUSPENSION 30 ML CUP PO PRN (14:01)
[2019-10-14] MEDS ORDERED: MENTHOL/PHENOL 1 EACH UD MM PRN (14:01)
[2019-10-14] MEDS ORDERED: P-EPHED 60MG/TRIPROLIDI 2.5MG TABLET PO PRN (14:01)
[2019-10-14] MEDS ORDERED: guaiFENesin 200 MG/10 ML 10 ML UNIT-DOSE CUPS PO PRN (14:01)
[2019-10-14] MEDS ORDERED: hydrOXYzine PAMOATE 25 MG CAPSULE (FP) PO PRN (14:01)
[2019-10-14] MEDS ORDERED: chlordiazePOXIDE HCL 10 MG CAPSULE PO PRN (14:01)
[2019-10-14] MEDS ORDERED: NICOTINE POLACRILEX 2 MG GUM BUC PRN (14:01)
[2019-10-14] MEDS: THIAMINE HCL 100 MG TABLET (FP) PO SCH (22:18)
[2019-10-14] MEDS: chlordiazePOXIDE HCL 25 MG CAPSULE PO SCH (22:18)
[2019-10-14] MEDS: MELATONIN 5 MG TABLETS PO PRN (22:18)
[2019-10-15] MEDS: chlordiazePOXIDE HCL 25 MG CAPSULE PO SCH ×3 (05:19→22:27)
[2019-10-15] MEDS: PRENATAL VITAMINS W/ FOLIC ACID TABLET (FP) PO SCH (10:14)
--- NOTE | 2019-10-15 11:16 | PN ---
S CIWA - CIWA Score Nausea/Vomitin-No Nausea/No Vomiting Muscle Tremors: 2 Anxiety: 3 Agitation: 0-Normal Activity Paroxysmal Sweats: 3 Orientation: 0-Oriented Tacttile Disturbances: 0-None Auditory Disturbances: 0-None Visual Disturbances: 0-None Headache: 2-Mild CIWA-Ar Total Score: 10 BHS Progress Note (SOAP) Subjective: c/o sweats, anxiety, and headache. Objective: 10/15/19 11:15 Vital Signs 10/15/19 10/15/19 06:31 09:20 Temperature 98.1 F 96.0 F L Pulse Rate 47 L 51 L Respiratory 18 16 Rate Blood Pressure 118/69 130/86 Assessment: 10/15/19 11:15 AOX3, in no acute respiratory distress. Full ROM, ambulating in the unit. Withdrawal symptoms. Plan: continue detox.
[2019-10-15 11:35] LABS: HEMATOCRIT 40.9 % (35.4-49); HEMOGLOBIN 13.8 GM/dL (11.7-16.9); MCH 30.5 pg (25.7-33.7); MCHC 33.8 g/dl (32.0-35.9); MEAN CELL VOLUME 90.2 fl (80-96); MEAN PLT VOLUME 10.3 fl (7.5-11.1); PLATELET COUNT 140 K/MM3 (134-434); RBC 4.54 M/mm3 (4.00-5.60); RDW 13.8 % (11.9-15.9); WHITE BLOOD COUNT 3.2 K/mm3 (4.0-10.0)
[2019-10-15 11:53] LABS: BILIRUBIN,TOTAL 0.8 mg/dL (0.2-1); BLOOD UREA NITROGEN 14.9 mg/dL (7-18); CALCIUM 9.1 mg/dL (8.5-10.1); POTASSIUM 4.4 mmol/L (3.5-5.1)
[2019-10-15] MEDS ORDERED: FLU VACCINE QUAD 60 MCG/0.5 ML (MDV 19-20) IM ONE (12:00)
--- NOTE | 2019-10-15 12:40 | CONSULT ---
[facility] Psychiatric Consult - Data Date of interview: 10/15/19 Admission source: [facility] Identifying data: Revisit to [facility] and admission to [address] [place] [address] for this 49 y/o AA male self-referred for detoxification treatment. JASPAL issues : alcohol, crack/ cocaine, phencyclidine, nicotine. Patient is single, father of three, domiciled , unemployed and supported on SSI benefits. Substance Abuse History: Discussed with the patient. Details in current [facility] report as follows : Smoking history: Current every day smoker. Have you smoked in the past 12 months: Yes. Aproximately how many cigarettes per day: 20. Hx Chewing Tobacco Use: No. Initiated information on smoking cessation: Yes. ' Breaking Loose' booklet given: 10/14/19. - Substance & Tx. History. Hx Alcohol Use: Yes. Hx Substance Use: No. Substance Use Type: Alcohol. Hx Substance Use Treatment: Yes. - Substances abused. Alcohol. Substance route: Oral. Frequency: Daily. Amount used: VODKA/ LIQUOR- 2PTS/. Age of first use: 11. Date of last use: 10/14/19. Crack. Substance route: Smoking. Frequency: Daily. Amount used: 10BAGS. Age of first use: 17. Date of last use: 10/13/19 Medical History: Patient endorses good general health. Psychiatric History: Patient endorses a distant history of psychiatric hospitalizations ([facility], [facility], [place], [facility] [facility] " They say that I have bipolar and schizophrenia but this is not true. That's why I don't take their medications." Mr Sorensne has been lost to psychiatric OPD care for years. Patient denies history of suicide attempts. Physical/Sexual Abuse/Trauma History: Patient denies. Additional Comment: Urine drug screen results: MIKIE-Cocaine. Noted. Mental Status Exam - Mental Status Exam Alert and Oriented to: Time, Place, Person Cognitive Function: Good Patient Appearance: Well Groomed Mood: Hopeful, Euthymic Affect: Appropriate, Normal Range Patient Behavior: Appropriate, Cooperative Speech Pattern: Clear Voice Loudness: Normal Thought Process: Goal Oriented Thought Disorder: Not Present Hallucinations: Denies Suicidal Ideation: Denies Homicidal Ideation: Denies Insight/Judgement: Poor Sleep: Well Appetite: Good Gait/Station: Normal Psychiatric Findings - Problem List ([place] 1, 2,3) (1) Alcohol dependence with uncomplicated withdrawal Current Visit: Yes Status: Acute (2) Cocaine dependence Current Visit: Yes Status: Chronic Qualifiers: Substance use status: uncomplicated Qualified Code(s): F14.20 - Cocaine dependence, uncomplicated (3) Nicotine dependence Current Visit: Yes Status: Chronic Qualifiers: Nicotine product type: cigarettes Substance use status: uncomplicated Qualified Code(s): F17.210 - Nicotine dependence, cigarettes, uncomplicated (4) History of schizoaffective disorder Current Visit: Yes Status: Acute - Initial Treatment Plan Initial Treatment Plan: Psychoeducation. Sleep hygiene. Detoxification in progress. Support. AA meetings. Observation.
[2019-10-15] MEDS: MELATONIN 5 MG TABLETS PO PRN (22:26)
[2019-10-15] MEDS: THIAMINE HCL 100 MG TABLET (FP) PO SCH (22:27)
[2019-10-16] MEDS: chlordiazePOXIDE 5 MG CAPSULE PO SCH ×3 (06:00→23:02)
[2019-10-16] MEDS: PRENATAL VITAMINS W/ FOLIC ACID TABLET (FP) PO SCH (10:16)
--- NOTE | 2019-10-16 10:48 | PN ---
S CIWA - CIWA Score Nausea/Vomitin-Mild Nausea/No Vomiting Muscle Tremors: 3 Anxiety: 2 Agitation: 1-Slight > Activity Paroxysmal Sweats: 2 Orientation: 0-Oriented Tacttile Disturbances: 0-None Auditory Disturbances: 0-None Visual Disturbances: 1-Very Mild Sensitivity Headache: 2-Mild CIWA-Ar Total Score: 12 BHS Progress Note (SOAP) Subjective: 49 years old male admitted on 10/14/19 for alcohol withdrawal sx management treating with librium detox regimen anxious with restlessness reports smoking one pack of cigarette daily nicotine patch 21 mg daily Objective: 10/16/19 10:54 Vital Signs Temperature 98.5 F 10/16/19 09:10 Pulse Rate 59 L 10/16/19 09:10 Respiratory Rate 18 10/16/19 09:10 Blood Pressure 130/72 10/16/19 09:10 O2 Sat by Pulse Oximetry (%) Laboratory Last Values WBC 3.2 K/mm3 (4.0-10.0) L 10/15/19 07:30 RBC 4.54 M/mm3 (4.00-5.60) 10/15/19 07:30 Hgb 13.8 GM/dL (11.7-16.9) 10/15/19 07:30 Hct 40.9 % (35.4-49) 10/15/19 07:30 MCV 90.2 fl (80-96) 10/15/19 07:30 MCH 30.5 pg (25.7-33.7) 10/15/19 07:30 MCHC 33.8 g/dl (32.0-35.9) 10/15/19 07:30 RDW 13.8 % (11.9-15.9) 10/15/19 07:30 Plt Count 140 K/MM3 (134-434) D 10/15/19 07:30 MPV 10.3 fl (7.5-11.1) 10/15/19 07:30 Sodium 141 mmol/L (136-145) 10/15/19 07:30 Potassium 4.4 mmol/L (3.5-5.1) 10/15/19 07:30 Chloride 107 mmol/L (98-107) 10/15/19 07:30 Carbon Dioxide 31 mmol/L (21-32) 10/15/19 07:30 Anion Gap 3 MMOL/L (8-16) L 10/15/19 07:30 BUN 14.9 mg/dL (7-18) 10/15/19 07:30 Creatinine 1.0 mg/dL (0.55-1.3) 10/15/19 07:30 Est GFR (CKD-EPI)AfAm 102.69 10/15/19 07:30 Est GFR (CKD-EPI)NonAf 88.61 10/15/19 07:30 Random Glucose 78 mg/dL (74-106) 10/15/19 07:30 Calcium 9.1 mg/dL (8.5-10.1) 10/15/19 07:30 Total Bilirubin 0.8 mg/dL (0.2-1) 10/15/19 07:30 AST 12 U/L (15-37) L 10/15/19 07:30 ALT 22 U/L (13-61) 10/15/19 07:30 Alkaline Phosphatase 68 U/L (45-117) 10/15/19 07:30 Total Protein 7.0 g/dl (6.4-8.2) 10/15/19 07:30 Albumin 4.0 g/dl (3.4-5.0) 10/15/19 07:30 RPR Titer Nonreactive (NONREACTIVE) 10/15/19 07:30 HIV 1&2 Antibody Screen Negative 10/15/19 07:30 HIV P24 Antigen Negative 10/15/19 07:30 10/16/19 10:59 lab noted Assessment: 10/16/19 11:00 alcohol withdrawal Plan: librium regimen
[2019-10-16] MEDS: NICOTINE 21 MG/24 HOURS TOPICAL PATCH TD SCH (11:16)
[2019-10-16] MEDS: THIAMINE HCL 100 MG TABLET (FP) PO SCH (23:02)
[2019-10-17] MEDS ORDERED: chlordiazePOXIDE HCL 10 MG CAPSULE PO PRN
[2019-10-17] MEDS: chlordiazePOXIDE HCL 10 MG CAPSULE PO SCH ×3 (06:43→21:01)
[2019-10-17] MEDS: PRENATAL VITAMINS W/ FOLIC ACID TABLET (FP) PO SCH (10:49)
[2019-10-17] MEDS: NICOTINE 21 MG/24 HOURS TOPICAL PATCH TD SCH (10:49)
--- NOTE | 2019-10-17 11:15 | PN ---
[facility] CIWA - CIWA Score Nausea/Vomitin-No Nausea/No Vomiting Muscle Tremors: 1-None Visible, but [place] Anxiety: 2 Agitation: 0-Normal Activity Paroxysmal Sweats: 2 Orientation: 0-Oriented Tacttile Disturbances: 1-Very Mild Itch/Numbness Auditory Disturbances: 0-None Visual Disturbances: 0-None Headache: 0-None Present CIWA-Ar Total Score: 6 BHS Progress Note (SOAP) Subjective: Patient c/o of interrupted sleep, chills, sweats Objective: 10/17/19 11:14 Vital Signs Temperature 98.4 F 10/17/19 09:44 Pulse Rate 60 10/17/19 09:44 Respiratory Rate 18 10/17/19 09:44 Blood Pressure 126/69 10/17/19 09:44 O2 Sat by Pulse Oximetry (%) Laboratory Last Values WBC 3.2 K/mm3 (4.0-10.0) L 10/15/19 07:30 RBC 4.54 M/mm3 (4.00-5.60) 10/15/19 07:30 Hgb 13.8 GM/dL (11.7-16.9) 10/15/19 07:30 Hct 40.9 % (35.4-49) 10/15/19 07:30 MCV 90.2 fl (80-96) 10/15/19 07:30 MCH 30.5 pg (25.7-33.7) 10/15/19 07:30 MCHC 33.8 g/dl (32.0-35.9) 10/15/19 07:30 RDW 13.8 % (11.9-15.9) 10/15/19 07:30 Plt Count 140 K/MM3 (134-434) D 10/15/19 07:30 MPV 10.3 fl (7.5-11.1) 10/15/19 07:30 Sodium 141 mmol/L (136-145) 10/15/19 07:30 Potassium 4.4 mmol/L (3.5-5.1) 10/15/19 07:30 Chloride 107 mmol/L (98-107) 10/15/19 07:30 Carbon Dioxide 31 mmol/L (21-32) 10/15/19 07:30 Anion Gap 3 MMOL/L (8-16) L 10/15/19 07:30 BUN 14.9 mg/dL (7-18) 10/15/19 07:30 Creatinine 1.0 mg/dL (0.55-1.3) 10/15/19 07:30 Est GFR (CKD-EPI)AfAm 102.69 10/15/19 07:30 Est GFR (CKD-EPI)NonAf 88.61 10/15/19 07:30 Random Glucose 78 mg/dL (74-106) 10/15/19 07:30 Calcium 9.1 mg/dL (8.5-10.1) 10/15/19 07:30 Total Bilirubin 0.8 mg/dL (0.2-1) 10/15/19 07:30 AST 12 U/L (15-37) L 10/15/19 07:30 ALT 22 U/L (13-61) 10/15/19 07:30 Alkaline Phosphatase 68 U/L (45-117) 10/15/19 07:30 Total Protein 7.0 g/dl (6.4-8.2) 10/15/19 07:30 Albumin 4.0 g/dl (3.4-5.0) 10/15/19 07:30 RPR Titer Nonreactive (NONREACTIVE) 10/15/19 07:30 HIV 1&2 Antibody Screen Negative 10/15/19 07:30 HIV P24 Antigen Negative 10/15/19 07:30 Assessment: 10/17/19 12:13 Patient Aox3 no acute distress EENT WNL Full ROM no gait disturbance withdrawal sx Plan: Increase fluids continue detox d/c in AM if stable continue to monitor
[2019-10-17 12:25] LABS: URINE APPEARANCE CLEAR; URINE BILIRUBIN NEGATIVE (NEGATIVE); URINE COLOR YELLOW; URINE GLUCOSE (UA) NEGATIVE (NEGATIVE); URINE KETONE NEGATIVE (NEGATIVE); URINE LEUK ESTERASE NEGATIVE (NEGATIVE); URINE NITRITE NEGATIVE (NEGATIVE); URINE PROTEIN NEGATIVE (NEGATIVE); URINE UROBILINOGEN 0.2 mg/dL (0.2-1.0)
[2019-10-17] MEDS: MELATONIN 5 MG TABLETS PO PRN (21:00)
[2019-10-17] MEDS: THIAMINE HCL 100 MG TABLET (FP) PO SCH (21:01)
[2019-10-18] MEDS ORDERED: chlordiazePOXIDE HCL 10 MG CAPSULE PO ONE (05:00)
--- NOTE | 2019-10-18 07:50 | DS ---
[facility] Detox Discharge Summary Admission Date: 10/14/19 Discharge Date: 10/18/19 - History Present History: Alcohol Dependence, Cocaine Dependence - Physical Exam Results Vital Signs: Vital Signs Temperature 97.4 F L 10/18/19 05:53 Pulse Rate 65 10/18/19 05:53 Respiratory Rate 18 10/18/19 05:53 Blood Pressure 115/60 10/18/19 05:53 O2 Sat by Pulse Oximetry (%) - Treatment Hospital Course: Detox Protocol Followed, Detoxed Safely, Responded well, Discharged Condition Good, Rehab Referral Accepted Patient has Accepted a Rehab Referral to: pt referred to inpatient rehab; [facility] - Medication Discharge Medications: Ambulatory Orders NK [No Known Home Medication] 06/07/16 - Diagnosis (1) Alcohol dependence with uncomplicated withdrawal Current Visit: Yes Status: Chronic (2) History of schizoaffective disorder Current Visit: Yes Status: Acute (3) Cocaine dependence Current Visit: Yes Status: Chronic Qualifiers: Substance use status: uncomplicated Qualified Code(s): F14.20 - Cocaine dependence, uncomplicated (4) Nicotine dependence Current Visit: Yes Status: Chronic Qualifiers: Nicotine product type: cigarettes Substance use status: uncomplicated Qualified Code(s): F17.210 - Nicotine dependence, cigarettes, uncomplicated (5) Burning with urination Current Visit: No Status: Acute (6) Bipolar disorder Current Visit: No Status: Chronic Qualifiers: Current episode severity: unspecified (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
[2019-10-18] MEDS: NICOTINE 21 MG/24 HOURS TOPICAL PATCH TD SCH (10:17)
[2019-10-18] MEDS: PRENATAL VITAMINS W/ FOLIC ACID TABLET (FP) PO SCH (10:17)
[2019-10-18 13:25] VITALS: BP 103/62; PULSE 57; TEMP 97.5
== END 2019-10-18 13:59 | disposition other institution (70) | DRG 774 ==
LOC: YASAS 10:45 → Y3N 14:30 → Y6N 10-16 17:17
PROVIDERS: ADMIT Allergy & Immunology; ATTEND Allergy & Immunology
PROC: HZ2ZZZZ Detoxification Services for Substance Abuse Treatment (ICD-10-PCS; principal; 2019-10-14)
DX: F10.230 Alcohol dependence with withdrawal, uncomplicated (principal); F14.20 Cocaine dependence, uncomplicated; F17.210 Nicotine dependence, cigarettes, uncomplicated; F19.24 Other psychoactive substance dependence with psychoactive substance-induced mood disorder; F25.9 Schizoaffective disorder, unspecified; F31.9 Bipolar disorder, unspecified; H21.562 Pupillary abnormality, left eye; R30.0 Dysuria
CPT/HCPCS: 36415; 80053; 81003; 85027; 86593; 87389

== ENCOUNTER 2019-10-18 14:22 | Inpatient (IN) | payer OTHER ==
--- NOTE | 2019-10-18 11:54 | HP ---
[facility] Rehab Assess/Revision - Admission History Admitted to Rehab from[facility] - Findings Detox History & Physical reviewed: Yes Concur with findings: Yes Inpatient Rehab Admission - Rehab Decision to Admit Inpatient rehab admission?: Yes - Initial Determination Are CD services needed?: Yes Free of communicable disease: Yes Not in need of hospitalization: Yes - Rehab Admission Criteria Previous failed treatment: Yes Poor recovery environment: Yes Comorbidities: Yes Lacks judgement: Yes Patient is meeting Inpatient Rehab admission criteria:: Yes
[2019-10-18] MEDS ORDERED: MAGNESIUM HYDROX 2400MG/30ML ORAL SUSPENSION 30 ML CUP PO PRN (15:39)
[2019-10-18] MEDS ORDERED: ACETAMINOPHEN 325 MG TABLET (FP) PO PRN (15:39)
[2019-10-18] MEDS ORDERED: MAG HYDROX/AL HYDROX/SIMETH 30 ML UNIT-DOSE CUP PO PRN (15:39)
[2019-10-18] MEDS ORDERED: NICOTINE POLACRILEX 4 MG GUM BUC PRN (15:39)
[2019-10-18] MEDS ORDERED: MENTHOL/PHENOL 1 EACH UD MM PRN (15:39)
[2019-10-18] MEDS ORDERED: MAGNESIUM CITRATE 300 ML BOTTLE PO PRN (15:39)
[2019-10-18] MEDS ORDERED: guaiFENesin 200 MG/10 ML 10 ML UNIT-DOSE CUPS PO PRN (15:39)
[2019-10-18] MEDS ORDERED: LOPERAMIDE HCL 2 MG CAPSULE PO PRN (15:39)
[2019-10-18] MEDS ORDERED: P-EPHED 60MG/TRIPROLIDI 2.5MG TABLET PO PRN (15:39)
[2019-10-18] MEDS ORDERED: hydrOXYzine PAMOATE 50 MG CAPSULE (FP) PO PRN (15:39)
--- NOTE | 2019-10-18 15:39 | PN ---
S Progress Note Note: Pt is a 49 y/o male hx of JASPAL-alcohol admitted to rehab [address] [place] [address] [place] [address] detox today. PMHx:Denies Psych Hx:Bipolar Disorder; insomnia. Vital Signs - 24 hr 10/18/19 15:48 Temperature 97.9 F Pulse Rate 72 Respiratory 20 Rate Blood Pressure 131/64 Alert o x 3 nad oob ambulating with steady gait extremities/skin:no edema; skin intact. A/P s/p detox new rehab pt insomnia Hx Bipolar Disorder(no current med) Maintain safety increase po fluids. follow up with psych consult
[2019-10-18] MEDS: THIAMINE HCL 100 MG TABLET (FP) PO SCH (22:03)
[2019-10-18] MEDS: MELATONIN 5 MG TABLETS PO PRN (22:08)
[2019-10-19] MEDS: PRENATAL VITAMINS W/ FOLIC ACID TABLET (FP) PO SCH (10:54)
[2019-10-19] MEDS: NICOTINE 21 MG/24 HOURS TOPICAL PATCH TD SCH (10:55)
--- NOTE | 2019-10-19 14:30 | CONSULT ---
[facility] Psychiatric Consult - Data Date of interview: 10/19/19 Admission source: [facility] Identifying data: Mr Sorensen is a 49 years old single Black male, father of 3 children, unemployed receiving SSI, domiciled admitted from detox on 10/18/19 for inpatient rehabilitation for alcohol and cocaine Substance Abuse History: Reports history of alcohol and crack cocaine use. Refer to addiction counselor's summary for further information Medical History: Unremarkable. Smokes cigarettes 1 ppd Psychiatric History: Patient is known to this facility from a few previous admissions. He was just seen by Dr Monroe on 10/15/19 while in detox. He is in denial of his menta illness. Reportedly he is diagnosed with Schizoaffective Disorder and hsas had multiple previous psychiatric hospitalizations at various [facility] including [facility], [facility], [address] in [facility]. According to Dr Monroe he has been lost to psychiatric OPD care for years. Denies previous suicide attempt. Denies experiencing psychotic. manic or depressive symptoms, S/H ideations. However, reports sleeping poorly and requests medication for insomnia. Mental Status Exam - Mental Status Exam Alert and Oriented to: Time, Place, Person Cognitive Function: Fair Patient Appearance: Well Groomed Mood: Anxious Affect: Appropriate Speech Pattern: Clear Voice Loudness: Normal Thought Process: Intact, Goal Oriented Thought Disorder: Not Present Hallucinations: Denies Suicidal Ideation: Denies Homicidal Ideation: Denies Insight/Judgement: Fair Sleep: Poorly Appetite: Good Muscle strength/Tone: Normal Gait/Station: Normal Psychiatric Findings - Problem List ([place] 1, 2,3) (1) Schizoaffective disorder Current Visit: Yes Status: Chronic (2) Substance-induced sleep disorder Current Visit: Yes Status: Acute (3) Alcohol dependence Current Visit: Yes Status: Acute (4) Cocaine dependence Current Visit: No Status: Acute Qualifiers: Substance use status: uncomplicated Qualified Code(s): F14.20 - Cocaine dependence, uncomplicated (5) Nicotine dependence Current Visit: No Status: Chronic Qualifiers: Nicotine product type: cigarettes Substance use status: uncomplicated Qualified Code(s): F17.210 - Nicotine dependence, cigarettes, uncomplicated - Initial Treatment Plan Initial Treatment Plan: 1) Serpquel 100 mg po Hs. 2) Continue inpatient rehabilitation
[2019-10-19] MEDS: QUEtiapine FUMARATE 100 MG TABLET (FP) PO SCH (22:12)
[2019-10-19] MEDS: THIAMINE HCL 100 MG TABLET (FP) PO SCH (22:12)
[2019-10-20] MEDS: PRENATAL VITAMINS W/ FOLIC ACID TABLET (FP) PO SCH (10:45)
[2019-10-20] MEDS: NICOTINE 21 MG/24 HOURS TOPICAL PATCH TD SCH (10:45)
[2019-10-20] MEDS: THIAMINE HCL 100 MG TABLET (FP) PO SCH (21:44)
[2019-10-20] MEDS: QUEtiapine FUMARATE 100 MG TABLET (FP) PO SCH (21:44)
[2019-10-21] MEDS: NICOTINE 21 MG/24 HOURS TOPICAL PATCH TD SCH (10:57)
[2019-10-21] MEDS: PRENATAL VITAMINS W/ FOLIC ACID TABLET (FP) PO SCH (10:57)
[2019-10-21] MEDS: QUEtiapine FUMARATE 100 MG TABLET (FP) PO SCH (21:34)
[2019-10-21] MEDS: THIAMINE HCL 100 MG TABLET (FP) PO SCH (21:34)
[2019-10-22] MEDS: PRENATAL VITAMINS W/ FOLIC ACID TABLET (FP) PO SCH (10:31)
[2019-10-22] MEDS: NICOTINE 21 MG/24 HOURS TOPICAL PATCH TD SCH (10:31)
[2019-10-22] MEDS: QUEtiapine FUMARATE 100 MG TABLET (FP) PO SCH (22:04)
[2019-10-22] MEDS: THIAMINE HCL 100 MG TABLET (FP) PO SCH (22:04)
[2019-10-23] MEDS: NICOTINE 21 MG/24 HOURS TOPICAL PATCH TD SCH (10:58)
[2019-10-23] MEDS: PRENATAL VITAMINS W/ FOLIC ACID TABLET (FP) PO SCH (10:59)
[2019-10-23] MEDS: IBUPROFEN 400 MG TABLET (FP) PO PRN (16:15)
[2019-10-23] MEDS: QUEtiapine FUMARATE 100 MG TABLET (FP) PO SCH (21:51)
[2019-10-23] MEDS: THIAMINE HCL 100 MG TABLET (FP) PO SCH (21:51)
[2019-10-24] MEDS: PRENATAL VITAMINS W/ FOLIC ACID TABLET (FP) PO SCH (11:24)
[2019-10-24] MEDS: NICOTINE 21 MG/24 HOURS TOPICAL PATCH TD SCH (11:24)
[2019-10-24] MEDS: IBUPROFEN 400 MG TABLET (FP) PO PRN (11:25)
[2019-10-24] MEDS: QUEtiapine FUMARATE 100 MG TABLET (FP) PO SCH (21:48)
[2019-10-24] MEDS: THIAMINE HCL 100 MG TABLET (FP) PO SCH (21:48)
[2019-10-25] MEDS: NICOTINE 21 MG/24 HOURS TOPICAL PATCH TD SCH (10:28)
[2019-10-25] MEDS: PRENATAL VITAMINS W/ FOLIC ACID TABLET (FP) PO SCH (10:28)
[2019-10-25] MEDS: IBUPROFEN 400 MG TABLET (FP) PO PRN (10:29)
--- NOTE | 2019-10-25 15:39 | PN ---
S Progress Note Note: Patient transferred to [facility], Stable at this time. Vital Signs Period Temp Pulse Resp BP Sys/Holder Pulse Ox Last 24 Hr 98.2 F 66 18-18 151/79
--- NOTE | 2019-10-25 15:58 | PN ---
[facility] Progress Note Note: Pt was transferred to [address] [place] [address] to continue with treatment as recommended by treatment team due to pt in verbal altercation with another patient [id number]. pt was spoken to by the Puncher, Ms. Suzan Scott. Vital Signs - 24 hr 10/25/19 10/25/19 10/25/19 00:30 03:30 07:08 Temperature Pulse Rate Respiratory 18 18 18 Rate Blood Pressure 10/25/19 15:06 Temperature 98.2 F Pulse Rate 66 Respiratory 18 Rate Blood Pressure 151/79 Alaert o x 3 nad oob ambulating with steady gait.. Transfer to [address] [place] [address] to complete treatment. Pt agreeable to poc
[2019-10-25] MEDS: THIAMINE HCL 100 MG TABLET (FP) PO SCH (21:10)
[2019-10-25] MEDS: QUEtiapine FUMARATE 100 MG TABLET (FP) PO SCH (21:10)
[2019-10-25] MEDS: MELATONIN 5 MG TABLETS PO PRN (21:10)
[2019-10-26] MEDS: IBUPROFEN 400 MG TABLET (FP) PO PRN (06:30)
[2019-10-26] MEDS: NICOTINE 21 MG/24 HOURS TOPICAL PATCH TD SCH (10:07)
[2019-10-26] MEDS: PRENATAL VITAMINS W/ FOLIC ACID TABLET (FP) PO SCH (10:07)
[2019-10-26] MEDS: THIAMINE HCL 100 MG TABLET (FP) PO SCH (21:29)
[2019-10-26] MEDS: QUEtiapine FUMARATE 100 MG TABLET (FP) PO SCH (21:29)
[2019-10-26] MEDS: MELATONIN 5 MG TABLETS PO PRN (21:29)
[2019-10-27] MEDS: IBUPROFEN 400 MG TABLET (FP) PO PRN (09:12)
[2019-10-27] MEDS: PRENATAL VITAMINS W/ FOLIC ACID TABLET (FP) PO SCH (10:13)
[2019-10-27] MEDS: NICOTINE 21 MG/24 HOURS TOPICAL PATCH TD SCH (10:14)
--- NOTE | 2019-10-27 12:39 | PN ---
S Progress Note (SOAP) Subjective: Patient to be discharged tomorrow HPI: Patient is 49 year old male known to [facility] due to previous admission. Patient last admitted 10/07/2019, states he had reoccurrence of ETOH use day of discharge. He has hx of alcohol dependence and cocaine dependence. Drinks 2 pints daily, JOSE MANUEL 0.005. Last drink this morning. He has hx of eye openers, shakes and blackouts. Denies seizures. PMH includes Bipolar disorder, on no medications. He denies SI/HI and suicide attempts. HOSPITAL COURSE: Patient attended groups, had 1:1 with the counselor, was seen by the psychiatric service. He had no medical issues while in rehab. Objective: P/E; General: no apparent distress HEENTM: normocephalic, PERRLA NEck: supple Lungs: clear Heart: s1 s2 ABD: +BS 10/27/19 13:11 Assessment: ETOH dependence Medically stable for discharge 10/27/19 13:11 Plan: Patient will go to aftercare at [facility]. He did not need any medications transmitted to the pharmacy.
--- NOTE | 2019-10-27 13:55 | PN ---
[facility] Progress Note Note: Patient is scheduled for discharge tomorrow. Script for 30 dayssupply of Seroquel 100 mg/hs will be electronically transmitted to [facility] @ [place] [address]
[2019-10-27] MEDS: QUEtiapine FUMARATE 100 MG TABLET (FP) PO SCH (21:11)
[2019-10-27] MEDS: THIAMINE HCL 100 MG TABLET (FP) PO SCH (21:11)
[2019-10-27] MEDS: MELATONIN 5 MG TABLETS PO PRN (21:11)
[2019-10-28 07:23] VITALS: BP 126/75; PULSE 82; TEMP 98.4
[2019-10-28] MEDS: IBUPROFEN 400 MG TABLET (FP) PO PRN (09:20)
--- NOTE | 2019-10-28 09:54 | DS ---
[facility] Rehab Discharge Summary - [facility] Rehab Discharge Summary Admission Date: 10/18/19 Discharge Date: 10/28/19 - History Present History: Alcohol dependence - Discharge Physical Exam Vital Signs: Vital Signs Temperature 98.4 F 10/28/19 07:22 Pulse Rate 82 10/28/19 07:22 Respiratory Rate 20 10/28/19 07:22 Blood Pressure 126/75 10/28/19 07:22 O2 Sat by Pulse Oximetry (%) - Treatment Discharge Condition: Discharge condition good - Medication Discharge Medications: Ambulatory Orders Quetiapine Fumarate [Seroquel -] 100 mg PO HS #30 tablet 10/27/19 - Medication-Assisted Treatment (MAT) Medication-Assisted Treatment (MAT): No MAT Follow-up Referral: Aftercare arranged for [facility]. Patient left unit with tech in stable medical condition, denies SI/HI. - Discharge Instructions Diet, activity, other medical instructions: Diet: Regular Activity: as tolerated Other medical instructions: follow up with PCP as recommended - Follow-up Referral Minutes to complete discharge: 30 - AMA Did Patient Leave Against Medical Advice: No
== END 2019-10-28 09:43 | disposition home or self-care (01) | DRG 772 ==
LOC: YASAS 14:22 → Y5N 14:23 → Y3W 10-25 14:37
PROVIDERS: ADMIT Allergy & Immunology; ATTEND Neuromusculoskeletal Medicine & OMM
PROC: HZ42ZZZ Group Counseling for Substance Abuse Treatment, Cognitive-Behavioral (ICD-10-PCS; principal; 2019-10-18)
DX: F10.20 Alcohol dependence, uncomplicated (principal); F14.20 Cocaine dependence, uncomplicated; F17.210 Nicotine dependence, cigarettes, uncomplicated; F19.282 Other psychoactive substance dependence with psychoactive substance-induced sleep disorder; F25.9 Schizoaffective disorder, unspecified; F31.9 Bipolar disorder, unspecified; G47.00 Insomnia, unspecified